=== PATIENT | male | born 2000 | race Caucasian/White ===

== ENCOUNTER 2022-05-08 19:05 | Emergency (ER) | payer OTHER, SELFPAY ==
--- NOTE | ~2022-05-08 | CT_ITS ---
EXAMINATION: CTA chest PE abdomen pel DATE: 05/08/2022 20:32 INDICATION: right side chest pain/ abdominal pain TECHNIQUE: Computed tomography angiography (CTA) of the chest was performed with 100 mL Omnipaque-350 intravenous contrast timed to evaluate the pulmonary arteries, followed by portal venous phase imagi ng of the abdomen and pelvis. Coronal maximum intensity projection 3D-reconstructions were created by the technologist. The dose-length product (DLP) was 954.92 mGy-cm. Automated exposure control and it erative reconstruction technique were employed. COMPARISON: None. FINDINGS: CHEST: Lung parenchyma and airways: Clear. Pleura: Unremarkable. Thoracic inlet, axillae and chest wall: Mild bilateral gynecomastia. Thoracic aorta: Normal. Mediastinum: Normal. Heart and pericardium: Enlarged heart. There is four-chamber enlargement, with a predominant componen t of right atrial and right ventricular enlargement. No septal bowing or hepatic vein reflux. Coronary artery calcifications: Absent. Thoracic bones: No acute osseous finding. Pulmonary arteries: Study quality: Adequate. No pulmonary emboli detected. ABDOMEN/PELVIS: Liver: Normal. Biliary/Gallbladder: Gallbladder is normal. No bile duct dilation. Pancreas: No mass or duct dilation. Spleen: Normal. Adrenals:No mass. Kidneys: No mass, stone, or hydronephrosis. GI tract: No small or large bowel dilation. Normal appendix. Mesentery/Peritoneum: No ascites, mass, or free air. Retroperitoneum: No mass. Pelvis: Pelvic organs are within normal limits. Soft Tissues: Soft tissues and body wall unremarkable. Abdominopelvic bones: No acute osseous finding. IMPRESSION: No CT evidence of acute pulmonary embolus. Cardiomegaly. No acute abdominopelvic process detected. Reviewed, dictated and finalized at location [facility]. OUT IMPRESSION: No CT evidence of acute pulmonary embolus. Cardiomegaly. No acute abdominopelvi c process detected.
[2022-05-08 19:07] VITALS: BP 135/81; PULSE 54; RESP 17; TEMP 36.9; O2SAT 100
--- NOTE | 2022-05-08 19:20 | ECG_ITS ---
Measurements Intervals [place] Rate: 50 P: 15 TX: 193 QRS: 88 QRSD: 100 T: 7 QT: 421 QTc: 387 Interpretive Statements SINUS BRADYCARDIA INCOMPLETE RIGHT BUNDLE BRANCH BLOCK [90+ ms QRS DURATION, TERMINAL R IN V1/V2, 40+ ms S IN I/aVL/V4/V5/V6] MINIMAL VOLTAGE CRITERIA FOR LVH, CONSIDER NORMAL VARIANT [MEETS CRITERIA IN ONE OF: R(aVL), S(V1), R(V5), R(V5/V6)+S(V1)] NO PREVIOUS ECG AVAILABLE FOR COMPARISON Electronically Signed On 05-09-2022 11:15:44 PHARMACY DELIVERY DRIVER by Jacob Ng M.D.
[2022-05-08 19:49] LABS: Basophils Absolute Auto 0.1 K/mm3 (0.0-0.1); Basophils Percent Auto 0.7 % (0.2-1.2); Eosinophils Absolute Auto 0.1 K/mm3 (0-0.3); Eosinophils Percent Auto 1.8 % (0-4.4); Hematocrit 46.1 % (42.0-52.0); Hemoglobin 15.7 g/dL (14.0-18.0); Immature Granulocyte Absolute 0.02 K/mm3 (0.00-0.031); Immature Granulocyte Percent A 0.3 % (0-0.5); Lymphocytes Absolute Auto 1.83 K/mm3 (0.9-3.2); Lymphocytes Percent Auto 24.8 % (18.3-44.2); Mean Corpuscular HGB Conc 34.1 g/dl (32-36); Mean Corpuscular Hemoglobin 29.8 pg (26-34); Mean Corpuscular Volume 87.5 fl (80-100); Mean Platelet Volume 10.9 fl (7.4-10.4); Monocytes Absolute Auto 0.5 K/mm3 (0.1-0.6); Monocytes Percent Auto 6.9 % (2.6-8.5); Neutrophils Absolute Auto 4.8 K/mm3 (1.3-6.7); Neutrophils Percent Auto 65.5 % (45.5-73.1); Platelet Count Result 200 k/mm3 (150-375); Red Blood Count 5.27 M/mm3 (4.6-6.20); Red Cell Distribution Width 12.7 % (11.5-14.5); White Blood Count 7.4 K/mm3 (4.5-10.0)
--- NOTE | 2022-05-08 19:50 | ED.GENADULT ---
HPI - General Adult General Chief complaint: Abdominal Pain Stated complaint: Rib pain and abdominal pain, poor intake Time Seen by Provider: 05/08/22 19:14 History of Present Illness HPI narrative: Patient is a 22-year-old gentleman who presents emerged department with chief complaint of right-sided chest pain right-sided abdominal pain. Patient reports that pain began several days ago reports it started off as dull and now it is more sharp type pain worse with inspiration and worse with movement. Patient reports that he has had some vomiting and diarrhea with this as well reports symptoms or not improved by anything and had a low-grade fever at home. Related Data Allergies Allergy/AdvReac Type Severity Reaction Status Date / Time No Known Allergies Allergy Verified 05/08/22 19:11 Review of Systems Review of Systems: A 10 system review of systems was completed on the patient and is negative except for what is stated in the HPI. Nursing and ancillary documentation was reviewed. Exam Narrative: GENERAL: Well-appearing, well-nourished, and in no acute distress. HEAD: Normocephalic, atraumatic. EYES: PERRLA and EOMI. ENT: Nares clear, no rhinorrhea or epistaxis. Mucous membranes moist. NECK: Supple. CHEST: Clear to auscultation. No respiratory distress. HEART: Regular rate and rhythm. No murmur heard. Normal peripheral pulses. ABDOMEN: Soft, nontender, nondistended, normal active bowel sounds. EXTREMITIES: Normal range of motion. No edema. SKIN: Warm, dry, no rash. NEURO: No focal deficits. Alert and oriented x3. PSYCH: Normal mood and affect. Course Course Emergency Course: Due to the patient having pain in the chest and plan was to perform CT scan of the abdomen pelvis a PE study was added as well. The patient's laboratory studies are within normal limits patient has a negative troponin EKG showed no evidence of acute ischemic changes. Vital Signs Vital signs: Vital Signs Temperature 36.9 C 05/08/22 19:07 Pulse Rate 54 L 05/08/22 19:07 Respiratory Rate 17 05/08/22 19:07 Blood Pressure 135/81 05/08/22 19:07 Pulse Oximetry 100 05/08/22 19:07 Oxygen Delivery Room Air 05/08/22 19:07 Temperature 36.9 C 05/08/22 19:07 Pulse Rate 54 L 05/08/22 19:07 Respiratory Rate 17 05/08/22 19:07 Blood Pressure 135/81 05/08/22 19:07 Pulse Oximetry 100 05/08/22 19:07 Oxygen Delivery Room Air 05/08/22 19:07 Medical Decision Making Vital Signs Vital Signs: Vital Signs Temperature 36.9 C 05/08/22 19:07 Pulse Rate 54 L 05/08/22 19:07 Respiratory Rate 17 05/08/22 19:07 Blood Pressure 135/81 05/08/22 19:07 Pulse Oximetry 100 05/08/22 19:07 Oxygen Delivery Room Air 05/08/22 19:07 Temperature 36.9 C 05/08/22 19:07 Pulse Rate 54 L 05/08/22 19:07 Respiratory Rate 17 05/08/22 19:07 Blood Pressure 135/81 05/08/22 19:07 Pulse Oximetry 100 05/08/22 19:07 Oxygen Delivery Room Air 05/08/22 19:07 Lab Data 05/08/22 19:43 05/08/22 19:43 Labs: Lab Results 05/08/22 05/08/22 05/08/22 Range/Units 19:43 19:43 19:43 WBC 7.4 (4.5-10.0) K/mm3 RBC 5.27 (4.6-6.20) M/mm3 Hgb 15.7 (14.0-18.0) g/dL Hct 46.1 (42.0-52.0) % MCV 87.5 (80-100) fl MCH 29.8 (26-34) pg MCHC 34.1 (32-36) g/dl RDW 12.7 (11.5-14.5) % Plt Count 200 (150-375) k/mm3 MPV 10.9 H (7.4-10.4) fl Immature Gran % (Auto) 0.3 (0-0.5) % Neut % (Auto) 65.5 (45.5-73.1) % Lymph % (Auto) 24.8 (18.3-44.2) % [place] % (Auto) 6.9 (2.6-8.5) % Eos % (Auto) 1.8 (0-4.4) % Baso % (Auto) 0.7 (0.2-1.2) % Lymph # (Auto) 1.83 (0.9-3.2) K/mm3 [place] # (Auto) 0.5 (0.1-0.6) K/mm3 Eos # (Auto) 0.1 (0-0.3) K/mm3 Baso # (Auto) 0.1 (0.0-0.1) K/mm3 Abs Immat Gran (auto) 0.02 (0.00-0.031) K/mm3 Absolute Neuts (auto) 4.8 (1.3-6.7) K/mm3 Absolute Nucleated RBC 0.0 (0.0-0.012)
[2022-05-08 19:59] LABS: Alanine Aminotransferase 21 U/L (6-50); Alkaline Phosphatase 60 U/L (38-126); Anion Gap 11 mmol/L (8-16); Aspartate Amino Transferase 30 U/L (17-59); Bilirubin,Total 1.2 mg/dL (0.2-1.3); Blood Urea Nitrogen 14 mg/dL (9-20); Calcium 9.4 mg/dL (8.4-10.2); Carbon Dioxide 27 mmol/L (22-30); Chloride 103 mmol/L (98-107); Estimated CRCL calculation 121 ml/min; Estimated Glomerular Filt Rate > 60; Glucose 83 mg/dL (65-110); Lipase 66 U/L (23-300); Sodium 141 mmol/L (137-145)
[2022-05-08 20:00] LABS: Lactic Acid Reflex 1.1 mmol/L (0.7-2.0)
[2022-05-08 20:11] LABS: Troponin I < 0.012 ng/mL (0.000-0.034)
[2022-05-08 20:37] LABS: Appearance Urine Clear (Clear); Bilirubin Urine Negative (Negative); Blood Urine Negative (Negative); Color Urine Yellow (Yellow); Glucose Urine UA Negative (Negative); Ketones Urine Negative (Negative); Leukocyte Esterase Ur Negative LEU/UL (Negative); Nitrate Urine Negative (Negative); Protein Urine Negative (Negative); Specific Grav Ur 1.025 (1.001-1.035); Urobilinogen Urine 0.2 mg/dL (<2.0)
[2022-05-08 20:41] LABS: Add Urine Microscopic? NO
[2022-05-08 21:15] LABS: Influenza A QL RT-PCR Negative (Negative); Influenza B QL RT-PCR Negative (Negative); SARS-CoV-2 RNA PCR Negative
[2022-05-08 21:30] VITALS: BP 145/82; PULSE 54; RESP 16; O2SAT 97
== END 2022-05-08 21:35 | disposition home or self-care (01) ==
PROVIDERS: Emergency Provider Emergency Medicine
DX: R07.9 Chest pain, unspecified (principal); R10.84 Generalized abdominal pain; Z20.822 Contact with and (suspected) exposure to COVID-19
CPT/HCPCS: 36415; 71275; 74177; 80053; 81003; 83605; 83690; 83735; 84145; 84484; 85025; 87502; 93005; 99284; Q9967; U0003; U0005

== ENCOUNTER 2022-05-22 19:49 | Emergency (ER) | payer OTHER, SELFPAY ==
[2022-05-22 19:51] VITALS: BP 129/71; PULSE 73; RESP 16; TEMP 37.2; O2SAT 100
--- NOTE | 2022-05-22 20:14 | ED.GENADULT ---
HPI - General Adult General Chief complaint: Unspecified Stated complaint: eye pain Time Seen by Provider: 05/22/22 20:07 History of Present Illness HPI narrative: Patient is a 22-year-old male who presents ER with right eye injury. 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 Patient reports he felt like he saw black from down over his vision initially 3 separate times and also had some flashes of light. He continues to have blurred vision in his right eye and has black spots in his visual field in 5 separate areas. He has some difficulty with his peripheral vision on the right side. He reports he has history of abnormal drainage in his right eye but does not have a diagnosis of glaucoma but has had to see a specialist in the past for dilated exam. Patient also reports he has developed new thick purulent drainage in the last day he has bruising to his upper eyelid redness to his sclera. Patient does wear glasses. Symptoms have persisted since yesterday and so his athletic gear custodian recommended he come be evaluated. Related Data Allergies Allergy/AdvReac Type Severity Reaction Status Date / Time No Known Allergies Allergy Verified 05/08/22 19:11 Review of Systems Eyes: Eyes: Reports blurry vision, Reports change in vision, Denies diplopia, Reports eye discharge, Reports seeing flashes and Reports spots in vision Neurologic: Denies dizziness, Denies syncope and Reports loss of vision (Blurring and spots in vision.) [facility] Past Medical History Medical History (Updated 05/22/22 @ 21:05 by Lamont Cruz MD) Healthy adult male Surgical History Surgical History (Updated 05/22/22 @ 20:44 by Lamont Cruz MD) No history of previous surgery Exam Narrative: GENERAL: Well-appearing, well-nourished, and in no acute distress. HEAD: Normocephalic, atraumatic. EYES: PERRLA and EOMI. right upper eyelid with contusion. Sclera with injection and subconjunctival hemorrhage laterally. Patient received tetracaine and fluorescein staining. Right eye has no corneal abrasion. Eyelid eversion performed without foreign body. Vision in the right eye is 20/40 with directions and left eye is 20/15 with correction. Right eye pressure is 20 mmHg. ENT: Mucous membranes moist. EXTREMITIES: Normal range of motion. No edema. NEURO: Alert and oriented x3. PSYCH: Normal mood and affect. Course Course Emergency Course: Discussed with Dr. Smith at [facility]. Recommends evaluation in the ER tonight for emergent exam. Patient excepted to [facility] ER by Dr. Gonzalez. Patient educated that he should bring a ride with him to drive him home as he will likely be seen and treated and then discharged. It would not be recommended that he drive because he will likely receive medications that make it difficult for him to see at night. Vital Signs Vital signs: Vital Signs Temperature 98.9 F 05/22/22 19:51 Pulse Rate 73 05/22/22 19:51 Respiratory Rate 16 05/22/22 19:51 Blood Pressure 129/71 05/22/22 19:51 Pulse Oximetry 100 05/22/22 19:51 Oxygen Delivery Room Air 05/22/22 19:51 Temperature 98.9 F 05/22/22 19:51 Pulse Rate 73 05/22/22 19:51 Respiratory Rate 16 05/22/22 19:51 Blood Pressure 129/71 05/22/22 19:51 Pulse Oximetry 100 05/22/22 19:51 Oxygen Delivery Room Air 05/22/22 19:51 Medical Decision Making Vital Signs Vital Signs: Vital Signs Temperature 98.9 F 05/22/22 19:51 Pulse Rate 73 05/22/22 19:51 Respiratory Rate 16 05/22/22 19:51 Blood Pressure 129/71 05/22/22 19:51 Pulse Oximetry 100 05/22/22 19:51 Oxygen Delivery Room Air 05/22/22 19:51 Temperature 98.9 F 05/22/22 19:51 Pulse Rate 73 05/22/22 19:51 Respiratory Rate 16 05/22/22 19:51 Blood Pressure 129/71 05/22/22 19:51 Pulse Oximetry 100 05/22/22 19:51 Oxygen Delivery Room Air 05/22/22 19:51 Discharge Plan Discharge Clini
[2022-05-22] MEDS: ERYTHROMYCIN OPHTH OINTMENT 1 GM TUBE 1 APPLIC EACH EYE (21:33)
== END 2022-05-22 22:20 | disposition short-term general hospital (02) ==
PROVIDERS: Emergency Provider Emergency Medicine
DX: S05.91XA Unspecified injury of right eye and orbit, initial encounter (principal); W51.XXXA Accidental striking against or bumped into by another person, initial encounter; Y93.67 Activity, basketball
CPT/HCPCS: 99283; A9270